=== PATIENT | male | born 1970 | race Two or more races ===

== ENCOUNTER → 2024-12-18 | Outpatient (CLI) | payer BC ==
[2024-12-18 07:35] LABS: Basophils # (auto) 0 10 ^3/uL (0-0.2); Basophils % (auto) 0.5 % (0.0-2.0); Eosinophils # (auto) 0.2 10 ^3/uL (0-0.8); Eosinophils % (auto) 2.6 % (0.0-7.0); Hematocrit 47.8 % (41.0-53.0); Hemoglobin 16.8 g/dL (13.5-17.5); Lymphocytes # (auto) 3.3 10 ^3/uL (0.4-5.4); Lymphocytes % (auto) 38.6 % (10.0-50.0); Mean Corpuscular Hemoglobin 30.8 pg (28.0-32.0); Mean Corpuscular Hgb Conc. 35.3 g/dL (32.0-36.0); Mean Corpuscular Volume 87.5 fL (80.0-100.0); Monocytes # (auto) 0.5 10 ^3/uL (0-1.3); Neutrophils # (auto) 4.5 10 ^3/uL (1.6-8.6); Neutrophils % (auto) 52.3 % (37.0-80.0); Nucleated Red Blood Cells % 0.1 %; Platelet Count (auto) 279 10^3/uL (140-450); Red Blood Cells 5.46 10^6/uL (4.5-5.90); White Blood Cell 8.6 10^3/uL (4.4-10.8)
[2024-12-18 07:56] LABS: Alanine Aminotransferase 26 U/L (7-40); Alkaline Phosphatase 81 U/L (46-116); Anion Gap 7 (5-15); BUN/Creatinine Ratio 13.4 (10.0-20.0); Blood Urea Nitrogen 15 mg/dL (9-23); Calcium 9.9 mg/dL (8.7-10.4); Carbon Dioxide 29 mmol/L (20-31); Chloride 101 mmol/L (98-107); Potassium 4.7 mmol/L (3.5-5.1); Sodium 137 mmol/L (136-145); Total Protein 7.5 g/dL (5.7-8.2)
[2024-12-18 07:57] LABS: Albumin 4.7 g/dL (3.2-4.8)
[2024-12-18 07:58] LABS: Aspartate Aminotransferase 11 U/L (13-40); Bilirubin, Total 0.7 mg/dL (0.2-1.0); Cholesterol 222 mg/dL (< 200); Glucose 357 mg/dL (74-106); HDL Cholesterol 36 mg/dL (40-59); LDL Cholesterol 133 mg/dL (< 100); Triglycerides 297 mg/dL (< 150)
[2024-12-19 11:07] LABS: Free Thyroxine Index 2.1 (1.2-4.9); Thyroxine (T4) 6.8 ug/dL (4.5-12.0)
== END | disposition home or self-care (01) ==
LOC: LAB 07:12
PROVIDERS: ATTEND Internal Medicine
DX: E78.1 Pure hyperglyceridemia (principal); F52.21 Male erectile disorder; R53.83 Other fatigue
CPT/HCPCS: 36415; 80053; 80061; 84153; 84443; 85025

== ENCOUNTER 2025-03-09 07:20 | Outpatient (CLI) | payer BC ==
[2025-03-09 07:44] LABS: Basophils # (auto) 0.1 10 ^3/uL (0-0.2); Basophils % (auto) 0.6 % (0.0-2.0); Eosinophils # (auto) 0.2 10 ^3/uL (0-0.8); Eosinophils % (auto) 2.9 % (0.0-7.0); Hematocrit 45.7 % (41.0-53.0); Hemoglobin 15.8 g/dL (13.5-17.5); Lymphocytes % (auto) 35.1 % (10.0-50.0); Mean Corpuscular Hemoglobin 29.5 pg (28.0-32.0); Mean Corpuscular Hgb Conc. 34.6 g/dL (32.0-36.0); Mean Corpuscular Volume 85.3 fL (80.0-100.0); Monocytes # (auto) 0.6 10 ^3/uL (0-1.3); Monocytes % (auto) 7.4 % (0.0-12.0); Neutrophils # (auto) 4.6 10 ^3/uL (1.6-8.6); Platelet Count (auto) 255 10^3/uL (140-450); Red Blood Cells 5.35 10^6/uL (4.5-5.90); Red Cell Distribution Width 12.8 % (11.8-14.3); White Blood Cell 8.5 10^3/uL (4.4-10.8)
[2025-03-09 08:32] LABS: Alanine Aminotransferase 22 U/L (7-40); Albumin 4.3 g/dL (3.2-4.8); Alkaline Phosphatase 74 U/L (46-116); Amphetamine Screen, Urine Neg (NEGATIVE); Anion Gap 5 (5-15); Aspartate Aminotransferase 10 U/L (13-40); BUN/Creatinine Ratio 14.8 (10.0-20.0); Barbiturate Scree,Urine Neg (NEGATIVE); Benzodiazephine Screen, Urine Neg (NEGATIVE); Bilirubin, Total 0.6 mg/dL (0.2-1.0); Blood Urea Nitrogen 13 mg/dL (9-23); Calcium 9.1 mg/dL (8.7-10.4); Cannabinoid Screen, Urine Neg (NEGATIVE); Carbon Dioxide 27 mmol/L (20-31); Chloride 101 mmol/L (98-107); Cholesterol 183 mg/dL (< 200); Cocaine Screen, Urine Neg (NEGATIVE); HDL Cholesterol 30 mg/dL (40-59); LDL Cholesterol 104 mg/dL (< 100); Opiate Scree,Urine Neg (NEGATIVE); Phencyclidine Screen, Urine Neg (NEGATIVE); Potassium 4.3 mmol/L (3.5-5.1); Sodium 133 mmol/L (136-145); Total Protein 6.9 g/dL (5.7-8.2); Triglycerides 349 mg/dL (< 150)
[2025-03-09 08:51] LABS: Glucose 312 mg/dL (74-106)
[2025-03-10 10:35] LABS: Hepatitis B Core Total AB Negative (Negative)
[2025-03-10 10:56] LABS: Hepatitis A Total Antibody Positive (Negative); Hepatitis B Surface Antibody Negative (Negative); Hepatitis B Surface Antigen Negative (Negative); Hepatitis C Antibody Negative (Negative)
[2025-03-10 21:06] LABS: Chlamydia Trachomatis, NAA Negative (Negative); Neisseria gonorrhoeae, NAA Negative (Negative)
== END 2025-03-09 17:00 | disposition home or self-care (01) ==
LOC: LAB 07:20
PROVIDERS: ATTEND Licensed Practical Nurse
DX: I10 Essential (primary) hypertension (principal); N40.0 Benign prostatic hyperplasia without lower urinary tract symptoms; E78.2 Mixed hyperlipidemia; E55.9 Vitamin D deficiency, unspecified; Z13.6 Encounter for screening for cardiovascular disorders; Z13.1 Encounter for screening for diabetes mellitus; Z13.220 Encounter for screening for lipoid disorders; Z11.3 Encounter for screening for infections with a predominantly sexual mode of transmission; Z13.29 Encounter for screening for other suspected endocrine disorder; Z12.11 Encounter for screening for malignant neoplasm of colon
CPT/HCPCS: 36415; 80053; 80061; 80307; 82043; 82274; 82306; 83036; 84443; 85025; 86703; 86704; 86706; 86708; 86780; 86803; 87340

== ENCOUNTER → 2025-06-04 | Outpatient (CLI) | payer BC ==
[2025-06-04 06:45] LABS: Hematocrit 48.2 % (41.0-53.0); Hemoglobin 16.6 g/dL (13.5-17.5); Mean Corpuscular Hemoglobin 29.5 pg (28.0-32.0); Mean Corpuscular Volume 85.9 fL (80.0-100.0); Nucleated Red Blood Cells % 0.2 %
[2025-06-04 07:08] LABS: Alanine Aminotransferase 31 U/L (7-40); Albumin 4.6 g/dL (3.2-4.8); Alkaline Phosphatase 54 U/L (46-116); Anion Gap 7 (5-15); BUN/Creatinine Ratio 15.2 (10.0-20.0); Bilirubin, Total 0.7 mg/dL (0.2-1.0); Blood Urea Nitrogen 16 mg/dL (9-23); Calcium 9.5 mg/dL (8.7-10.4); Carbon Dioxide 28 mmol/L (20-31); Chloride 104 mmol/L (98-107); Potassium 4.3 mmol/L (3.5-5.1); Sodium 139 mmol/L (136-145); Total Protein 7.6 g/dL (5.7-8.2)
[2025-06-04 07:14] LABS: Glucose 138 mg/dL (74-106)
[2025-06-04 07:40] LABS: Cholesterol 196 mg/dL (< 200)
[2025-06-04 08:09] LABS: HDL Cholesterol 35 mg/dL (40-59); Triglycerides 183 mg/dL (< 150)
== END | disposition home or self-care (01) ==
LOC: LAB 06:12
PROVIDERS: ATTEND Licensed Practical Nurse
DX: I10 Essential (primary) hypertension (principal); E11.9 Type 2 diabetes mellitus without complications; E78.5 Hyperlipidemia, unspecified
CPT/HCPCS: 36415; 80053; 80061; 82043; 82607; 83036; 85025

== ENCOUNTER → 2025-06-15 | Day surgery (SDC) | payer BC ==
[2025-06-14 14:39] LABS: Hematocrit 48.9 % (41.0-53.0); Hemoglobin 16.6 g/dL (13.5-17.5); Mean Corpuscular Hemoglobin 29.1 pg (28.0-32.0); Mean Corpuscular Volume 85.7 fL (80.0-100.0); Nucleated Red Blood Cells % 0.1 %
[2025-06-14 14:42] LABS: Urine Protein, UAD Negative (Negative)
[2025-06-14 14:52] LABS: INR 0.97 (0.9-1.15); Partial Thromboplastin Time 27.3 SEC (24.5-34.5); Prothrombin Time 10.3 sec (9.3-11.8)
[2025-06-14 15:06] LABS: Alanine Aminotransferase 27 U/L (7-40); Albumin 4.6 g/dL (3.2-4.8); Alkaline Phosphatase 61 U/L (46-116); Anion Gap 8 (5-15); Bilirubin, Total 0.5 mg/dL (0.2-1.0); Calcium 9.6 mg/dL (8.7-10.4); Carbon Dioxide 29 mmol/L (20-31); Chloride 102 mmol/L (98-107); Glucose 169 mg/dL (74-106); Potassium 4.5 mmol/L (3.5-5.1); Sodium 139 mmol/L (136-145); Total Protein 7.6 g/dL (5.7-8.2)
[2025-06-14 15:16] LABS: BUN/Creatinine Ratio 16.0 (10.0-20.0); Blood Urea Nitrogen 15 mg/dL (9-23)
[~2025-06-15] VITALS: Ht 175.3 cm; Wt 87.5 kg
[~2025-06-15] MED LIST: BACITRACIN TOP OINT 1 UD PKG TOP ONE; EMPA1TAB3 PO; GLYCOPYRROLATE 0.2 MG/ML 1ML VIAL ONE; HYDROmorphone HCL 2 MG/ML VL/or syr IV PRN; HYDROmorphone HCL 2 MG/ML VL/or syr ONE; KETAMINE 50mg/ML 1ml syringe ONE; KETOROLAC TROMETH 30 MG/ML 1ML VIAL ONE; LIDOCAINE 2% (LOCAL ANESTH.) PF 5ml SDV ONE; MIDAZOLAM HCL 2MG/2ML 2ml VIAL (1mg/ml) ONE; ONDANSETRON HCL 4 MG/2 ML VIAL IV PRN; ONDANSETRON HCL 4 MG/2 ML VIAL ONE; PROPOFOL 10 MG/ML 20 ML IV ONE; ceFAZolin 2 GM/D5W50ml 50 ML IV ONE; fentaNYL CITRATE 100 MCG/2 ML VL ONE
[2025-06-15] MEDS: LIDOCAINE W/ EPINEPHRINE 1% 20ML VIAL ONE (09:18)
[2025-06-15 09:45] VITALS: PULSE 75; RESP 13; TEMP 97.6; O2SAT 96
--- NOTE | 2025-06-15 10:02 | DVHNC2 ---
Procedure - OPERATIVE REPORT Pre-op. Diagnosis: Phimosis BPH nocturia Post-op. Diagnosis: Same as pre-op diagnosis Operation: Circumcision diagnostic cystoscopy Anesthesia: General + Lidocaine 1% with Epi for penile block Indications: Patient has difficulty with fully retracting his foreskin and recurrent irr itation/balanitis. He also has nocturia and lower urinary tract symptom due to BPH The indications, risks, complications, alternatives and benefits for circumcision and cystoscopy are discussed with patient and family. All questions are encouraged and answered. Specific risks/complications including but not limited to infection, wound dehiscence, penile deformity/angulation and altered sensation on skin were discussed. He is aware of alternative management of hygiene and conservative management. He is competent and understands the discussion. The consent is obtained. Details of Procedure: Patient was brought to the operating room and placed in supine position. After induction of anesthesia, his genitalia was prepped and draped in standard surgical fashion. Dorsal penile block was performed with 1% Lidocaine with Epi in standard manner. Two circumferential incisions were made proximally and distally from the coronal sulcus and the excess foreskin was excised. Hemostasis was assured and the edges were re-approximated by using 3-0 Chromic Suture in a simple interrupted fashion. next, flexible cystoscope was used to inspect the urethra in the bladder. Findings of patent urethra, bilateral Coaptite in prostatic fossa and distended bladder with 2+ trabeculation are noted. On retroflexion, there was minimal protrusion of the prostate into the bladder. Sterile dressing was then applied and patient was then awakened and moved to the recovery room in satisfactory fashion. Specimens: Foreskin Complications: None Findings: EBL: Minimal Notes: patient will need to undergo UroLift prostate implantation for his BPH CHARLINE Raman MD Jun 15, 2025 10:02
--- NOTE | 2025-06-15 10:03 | DVHDS2 ---
New Physician D'charge PN Admitting Diagnosis Admitting Diagnosis BPH Phimosis Diabetes Discharge Diagnosis Same Operations or Procedures Circumcision and cystoscopy Reason(s) For Hospitalization Surgery Treatment Plan Discharge Condition of Discharge Fair Disposition Home Discharge Instructions Diet: Regular Activity: Light activity Activity comment: Dressing removal on postop day 1. Medications: Given Follow Up Care Follow Up/Referral: Follow up in two weeks Discharge Statement: "Patient was advised to return to the ER or call 911 if any headaches, dizziness, shortness of breath, chest pain, abdominal pain, bleeding, fevers, or worsening of medical condition. Patient was counseled about treatment plan, medications, possible side effects, patientverbalized understanding. All questions were answered to the best of my ability. This discharge took greater then 30 minutes in planning, reviewing documentation, counseling the patient, and discussing with other team members." CHARLINE LINDER MD Jun 15, 2025 10:03
[2025-06-15 10:25] VITALS: BP 95/56; PULSE 96; RESP 16; O2SAT 96
== END | disposition home or self-care (01) ==
LOC: SUR 07:07
PROVIDERS: ATTEND Urology
DX: N47.1 Phimosis (principal); Z01.812 Encounter for preprocedural laboratory examination; E11.9 Type 2 diabetes mellitus without complications; N40.1 Benign prostatic hyperplasia with lower urinary tract symptoms; R35.1 Nocturia; N48.1 Balanitis; N32.89 Other specified disorders of bladder
CPT/HCPCS: 36415; 54161; 80053; 81001; 82962; 85025; 85610; 85730; 87086; 88305; J0690; J1100; J1171; J1885; J2003; J2250; J2405; J2704; J3010